=== PATIENT | female | born 1940 | race Caucasian/White ===

== ENCOUNTER 2018-07-21 13:12 | Outpatient (CLI) | payer MEDICARE, OTHER ==
--- NOTE | 2018-07-21 15:06 | BD ---
BONE DENSITOMETRY USING DEXA: Date: 07/21/18 HISTORY: Postmenopausal screening for osteoporosis. FINDINGS: Lumbar Spine: BMD (g/cm2) L1 0.783 T-Score: -1.9 Z-Score: 0.3 L2 0.813 T-Score: -2.0 Z-Score: 0.5 L3 0.771 T-Score: -2.8 Z-Score: -0.3 L4 0.865 T-Score: -1.8 Z-Score: 0.9 L1-L4 0.809 T-Score: -2.2 Z-Score: 0.3 Femoral Neck: 0.750 T-Score: -0.9 Z-Score: 1.2 Total Femur: 0.958 T-Score: 0.1 Z-Score: 2.0 There has been interval improvement of 2.6% in the bone mineral density of the lumbar spine and a red uction of 1.1% of the bone mineral density of the proximal femur since 01/27/16. IMPRESSION: Osteopenia. POS: BRANDY
== END 2018-07-21 13:13 | disposition home or self-care (01) ==
LOC: BICMAMMO 13:12
PROVIDERS: ATTEND Family Medicine
DX: Z12.31 Encounter for screening mammogram for malignant neoplasm of breast (principal); Z13.820 Encounter for screening for osteoporosis; M85.88 Other specified disorders of bone density and structure, other site; Z78.0 Asymptomatic menopausal state
CPT/HCPCS: 77063; 77067; 77080

== ENCOUNTER 2019-09-13 10:03 | Outpatient (CLI) | payer MEDICARE ==
--- NOTE | 2019-09-13 11:27 | MMO ---
Bilateral MAMMO Bilat Screen [facility]. CLINICAL HISTORY: Patient is 79 years old and is seen for screening. The patient has no family history of breast cancer. The patient has no personal history of cancer. VIEWS: The views performed were: bilateral craniocaudal with tomosynthesis and bilateral mediolateral oblique with tomosynthesis. FILMS COMPARED: The present examination has been compared to prior imaging studies performed at [facility] on 01/16/2014, 01/23/2015, 01/27/2016 and 07/21/2018. This study has been interpreted with the assistance of computer-aided detection. MAMMOGRAM FINDINGS: There are scattered fibroglandular densities. Finding 1: There are stable benign appearing calcifications seen in both breasts. Finding 2: There are stable intramammary lymph nodes seen in both breasts. There are no suspicious masses, suspicious calcifications, or new areas of architectural distortion. IMPRESSION: THERE IS NO MAMMOGRAPHIC EVIDENCE OF MALIGNANCY. A ROUTINE FOLLOW-UP MAMMOGRAM IN 1 YEAR IS RECOMMENDED. THE RESULTS OF THIS EXAM WERE SENT TO THE PATIENT. ACR BI-RADS Category 2 - Benign finding MAMMOGRAPHY NOTE: 1. A negative mammogram report should not delay a biopsy if a dominant of clinically suspicious mass is present. 2. Approximately 10% to 15% of breast cancers are not detected by mammography. 3. Adenosis and dense breasts may obscure an underlying neoplasm. Reported by: JEN CONTRERAS MD Electonically Signed: [id number]
== END 2019-09-13 10:04 | disposition home or self-care (01) ==
LOC: BICMAMMO 10:03
PROVIDERS: ATTEND Family Medicine
DX: Z12.31 Encounter for screening mammogram for malignant neoplasm of breast (principal)
CPT/HCPCS: 77063; 77067

== ENCOUNTER 2020-11-06 12:43 | Outpatient (CLI) | payer MEDICARE | END 2020-11-06 12:44 | disposition home or self-care (01) | LOC: BICMAMMO 12:43 | PROVIDERS: ATTEND Family Medicine | DX: Z12.31 Encounter for screening mammogram for malignant neoplasm of breast (principal); M85.88 Other specified disorders of bone density and structure, other site; Z78.0 Asymptomatic menopausal state | CPT/HCPCS: 77063; 77067; 77080 ==